=== PATIENT | female | born 1990 | race Caucasian/White ===

== ENCOUNTER 2019-12-02 09:55 | Outpatient (CLI) | payer OTHER ==
--- NOTE | 2019-12-02 10:44 | ULT ---
RIGHT BREAST ULTRASOUND LIMITED: HISTORY: Mastodynia right breast with a palpable area of concern at 12 o'clock with pain. FINDINGS: The breast is evaluated in the region of palpable painful concern. No solid or cystic mass. No abno rmal fluid collection. IMPRESSION: Somewhat heterogeneous echotexture of the right breast consistent with asymmetric echogenic glandular tissue. No solid or cystic mass or evidence for malignancy. No BIRADS category 2, benign findings. If the patient develops any new palpable finding, re-ultrasound of that area of concern should be con sidered. Consider routine screening mammograms at age 35-40 depending upon risk factors.
== END 2019-12-02 09:56 | disposition home or self-care (01) ==
LOC: BICULT 09:55
PROVIDERS: ATTEND Obstetrics & Gynecology
DX: N64.4 Mastodynia (principal); N63.10 Unspecified lump in the right breast, unspecified quadrant

== ENCOUNTER 2020-04-16 15:37 | Day surgery (SDC) | payer OTHER ==
[2020-04-16 16:05] VITALS: BMI 44.9
[2020-04-16 16:15] VITALS: BP 132/78; TEMP 98.6
[2020-04-16] MEDS ORDERED: hydrALAZINE 20 MG/ML VIAL SLOW IVP PRN (17:22)
--- NOTE | 2020-04-16 17:27 | PDOC.BPN ---
- Brief Progress Note Aware of patient status. H&P in process. NST is reactive.
--- NOTE | 2020-04-16 18:53 | HP ---
TIME: It is now 1820. Time of evaluation was roughly 180 until 181. LOCATION: Labor and Delivery in [facility]. CHIEF COMPLAINT: Patient is here for possible contractions and decreased movement at 37 weeks and 5 days. HISTORY OF PRESENT ILLNESS: In brief, this is a 29-year-old, G4, P3, who has a history of three term vaginal deliveries, who has a baby with known/suspected cleft lip, who arrives with some decreased movement that has now resolved. She also states some irregular contractions, but denies vaginal bleeding or leakage of fluid. She denies any fever, COVID-related symptoms, headache, or visual changes. She has no right upper quadrant pain per package delivery room service runner. She came in to get checked to make sure that she was in laboring and to put the baby on the monitor. REVIEW OF SYSTEMS: Complete review of system was checked and is otherwise negative unless specified in the HPI. PAST MEDICAL HISTORY: Otherwise, negative. PAST SURGICAL HISTORY: Significant for inguinal hernia repair, cholecystectomy, and cleft lip and palate repair, which she had as a child. OB HISTORY: Patient has 3 vaginal deliveries at term and significant for her first baby being affected with cleft lip and this baby also having a suspected cleft lip. SOCIAL HISTORY: Negative per package delivery room service runner. FAMILY HISTORY: Noncontributory, collected by package delivery room service runner. PHYSICAL EXAMINATION: VITAL SIGNS: Her blood pressure was first 132/78 and then repeat was 120 over 70s, temperature is 98.6, pulse is in the 80s, and respirations are 18 and nonlabored. GENERAL: She is in no acute distress. ABDOMEN: Soft and nontender and size appropriate. PELVIS: Cervical exam by the RN was 2 cm dilated, 50% effaced, -3 station, bag of water was intact and there was no evidence of bleeding per her assessment. On monitor, I evaluated the nonstress test and found the nonstress test to be reactive with moderate variability, accelerations, and no decelerations. Tocodynamometer shows contractions about every 10 minutes, but this is very irregular and rare. ASSESSMENT: This is a 29-year-old G4, P3, at early term (37 weeks and five days) with suspected contractions and decreased movement, now resolved. Reactive nonstress test. History of cleft lip and palate personally and this child is likely affected with cleft lip as well per imaging studies (prior MRI). PLAN: 1. Reassurance given. 2. NST explained to her in detail. 3. I performed an abdominal rock test to confirm acell and acell was noted. 4. No evidence of true labor at this time. 5. Next appointment is on and I recommended that she have a followup appointment within 24 to 48, which is our standard Labor and Delivery discharge. Job ID: [id number]
== END 2020-04-16 18:30 | disposition home or self-care (01) ==
LOC: L&D/OP 15:37
PROVIDERS: ATTEND Obstetrics & Gynecology
DX: O36.8130 Decreased fetal movements, third trimester, not applicable or unspecified (principal); Z3A.37 37 weeks gestation of pregnancy
CPT/HCPCS: 99283

== ENCOUNTER 2020-04-20 09:50 | Outpatient (CLI) | payer OTHER ==
[2020-04-21 12:41] LABS: SARS-CoV-2 MS2 Positive; SARS-CoV-2 N Gene Negative; SARS-CoV-2 S Gene Negative; SARS-CoV-2 orf1ab Negative
== END 2020-04-20 09:51 | disposition home or self-care (01) ==
LOC: LABSCS 09:50
PROVIDERS: ATTEND Obstetrics & Gynecology
DX: Z01.812 Encounter for preprocedural laboratory examination (principal); Z11.59 Encounter for screening for other viral diseases
CPT/HCPCS: 87635; U0003

== ENCOUNTER 2020-04-21 04:46 | Inpatient (IN) | payer OTHER ==
[2020-04-21] MEDS ORDERED: hydrALAZINE 20 MG/ML VIAL SLOW IVP PRN ×2 (05:17→16:47)
--- NOTE | 2020-04-21 05:17 | PDOC.LDHP ---
Labor and Delivery H&P Chief complaint: loss of fluid HPI: 29yo @ 38.3 presents to L&D for LOF just TELEPRINTER. States since then she has also been experiencing contractions every 5-10 minutes. Has continued to leak fluid ever since. Denies any other complaints at this time. Current gestational age (weeks): 38 (3) Due date: 05/02/20 Dating criteria: last menstrual period, first trimester ultrasound Grav: 4 Para: 3 OB History Details: All previous deliveries via , first child born with cleft lip Current complications: other (Cleft lip seen on MRI) Past Medical History: None Current medications: pre-robin vitamins Previous surgical history: cholecystectomy, other (inguinal hernia repair, cleft lip repair as a child) Allergies/Adverse Reactions: Allergies Allergy/AdvReac Type Severity Reaction Status Date / Time Cephalosporins Allergy Severe Anaphylaxis Verified 04/21/20 05:16 Penicillins Allergy Severe Anaphylaxis Verified 04/21/20 05:16 Sulfa (Sulfonamide Allergy Intermediate Hives Verified 04/21/20 05:16 Antibiotics) Social history: none - Physical Exam Vital signs reviewed and normal: yes General: NAD Heart: RRR Lungs: nonlabored breathing Abdomen: NTTP Extremeties: no edema FHT: category 1, variability present [place] contractions every: 5-6 - Vaginal Exam cm dilated: 4 Effacement: 50% Station: -3 - Assessment L&D Assessment: term rupture in membranes - Plan Plan: admit to L&D
[2020-04-21 05:32] VITALS: BMI 44.9
[2020-04-21] MEDS ORDERED: Butorphanol Tartrate 1 MG/ML VIAL SLOW IVP PRN (05:41)
[2020-04-21] MEDS ORDERED: Misoprostol 200 MCG TAB PR PRN (05:41)
[2020-04-21] MEDS ORDERED: Ibuprofen 800 MG TAB PO PRN (05:41)
[2020-04-21] MEDS ORDERED: Methylergonovine 0.2 MG/ML VIAL IM PRN (05:41)
[2020-04-21] MEDS ORDERED: Carboprost 250 MCG/ML AMP IM PRN (05:41)
[2020-04-21] MEDS ORDERED: Promethazine HCl 25 MG/ML VIAL IM PRN ×2 (05:41→10:37)
[2020-04-21] MEDS ORDERED: Acetaminophen 500 MG TAB PO PRN (05:41)
[2020-04-21] MEDS ORDERED: NS / Oxytocin 40 units/1000ml 1,000 ML IV PRN (05:41)
[2020-04-21] MEDS ORDERED: Lidocaine 1% (PF) 30 ML VIAL SC PRN (05:41)
[2020-04-21] MEDS ORDERED: Ondansetron PF 4 MG/2 ML Vial IVP PRN ×3 (05:41→16:47)
[2020-04-21] MEDS ORDERED: NS w/ Oxytocin 10 units 500 ML IV SCH (05:45)
[2020-04-21 06:57] LABS: Hemoglobin 11.6 g/dL (12.0-16.0); Mean Corpuscular HGB CONC 34.1 g/dL (32.0-36.0); Mean Corpuscular Volume 84.9 fL (78.0-98.0); Platelet Count 260 thou/uL (130-400); RBC Distribution Width 14.1 % (11.5-14.5); Red Blood Cell (RBC) Count 3.99 mill/uL (4.20-5.40); White Blood Cell (WBC) Count 9.1 thou/uL (4.8-10.8)
[2020-04-21 07:41] LABS: Syphilis Antibody Nonreactive (Nonreactive); Syphilis Antibody Index 0.02 S/CO (<1.00 Non-Reactive)
[2020-04-21 07:42] LABS: HBSAg Index 0.15 S/CO (0-0.99); Hep B Surf Ag Non-Reactive S/CO (NonReactive)
[2020-04-21] MEDS: Lactated Ringer's 1,000 ML IV SCH ×2 (07:55→11:15)
[2020-04-21] MEDS ORDERED: Fentanyl 4 mcg/Bup 0.1% Cadd 100 ML ONE (09:41)
[2020-04-21] MEDS ORDERED: Naloxone HCl 0.4 mg/ml Vial IVP PRN ×2 (10:37)
[2020-04-21] MEDS ORDERED: Lactated Ringer's 500 ML IV PRN (10:37)
[2020-04-21] MEDS ORDERED: Acetaminophen 325 MG TAB PO PRN (10:37)
[2020-04-21] MEDS ORDERED: EPHEDRINE 25 MG/5 ML SYRINGE SLOW IVP PRN (10:37)
[2020-04-21] MEDS ORDERED: diphenhydrAMINE 50 MG/ML VIAL IVP PRN (10:37)
[2020-04-21] MEDS ORDERED: Communication Order-Pharmacy FS SCH (10:45)
[2020-04-21] MEDS ORDERED: Fentanyl 4 mcg/Bupivacaine 0.1% Cassette 100 ML EPIDURAL SCH (10:45)
[2020-04-21] MEDS ORDERED: Lidocaine 2% MPF 10 ML AMP (For Epidural Use) ONE (11:26)
[2020-04-21] MEDS: hydrALAZINE 20 MG/ML VIAL SLOW IVP PRN ×2 (11:51→12:10)
[2020-04-21] MEDS ORDERED: Lidocaine 1% (PF) 30 ML VIAL ONE (12:01)
--- NOTE | 2020-04-21 12:52 | PDOC.OPDEL ---
OB Operative/Delivery Note Delivery Dr/Surgeon: Flip Pre-Delivery Diagnosis: active labor Procedure/Post Delivery Dx: spontaneous vaginal delivery (and removal of skin tag from left buttock) Weeks gestation: 38 Anesthesia: epidural - Findings A Sex: male - 1 min: 9 - 5 min: 9 - Additional Findings/Plan Placenta delivered: spontaneous Repaired Obstetrical Laceration: none Estimated blood loss: 100ml Compilations/Other Findings: 1cm pedunculated fibroid removed. Post delivery plan: routine recovery
[2020-04-21] MEDS ORDERED: Preparation H Ointment 28 GM TUBE PR PRN (16:47)
[2020-04-21] MEDS ORDERED: Bisacodyl 10 MG SUPP PR PRN (16:47)
[2020-04-21] MEDS ORDERED: NS / Oxytocin 40 units/1000ml 1,000 ML IV SCH (16:47)
[2020-04-21] MEDS ORDERED: diphenhydrAMINE 25 MG CAP PO PRN (16:47)
[2020-04-21] MEDS ORDERED: Milk Of Magnesia 30 ML UDCUP PO PRN (16:47)
[2020-04-21] MEDS ORDERED: HYDROcodone/Acetaminophen 5/325 mg Tablet PO PRN ×2 (16:47)
[2020-04-21] MEDS ORDERED: Adacel (T-DAP) 0.5 ML SYRINGE IM ONE (16:47)
[2020-04-21] MEDS ORDERED: Lanolin Ointment 7 GM TUBE TOP PRN (16:47)
[2020-04-21] MEDS ORDERED: Benzocaine-Menthol 82.5 ML CAN TOP PRN (16:47)
[2020-04-21] MEDS: Ferrous Sulfate 325 MG TAB PO SCH (18:47)
--- NOTE | 2020-04-21 23:19 | PDOC.BPN ---
- Brief Progress Note OBGYN venereal disease control head: Baby check Called to check on baby in well nursery. Baby with isolated cleft clip per RN and doing well.
[2020-04-21] MEDS: Docusate Calcium (SURFAK) 240 MG CAP PO SCH (23:54)
[2020-04-21] MEDS: Ibuprofen 800 MG TAB PO SCH (23:54)
--- NOTE | 2020-04-22 06:43 | PDOC.PP ---
Post Progress Note Post Day #: 1 Subjective: Patient feeling well this morning, denies any complaints. States she wants to go home today if baby is doing okay. Reports that baby has already been set up with plastic surgeon in [place] for surgical repair of isolated cleft lip. PO intake tolerated: yes Flatus: yes Ambulation: yes Vital Signs (12 hours) Temp Pulse Resp BP Pulse Ox 04/21/20 20:00 98.3 F 62 18 120/63 100 Weight Weight 104.326 kg - Physical Examination General: NAD Cardiovascular: no m/r/g, RRR Respiratory: clear to auscultation bilaterally, non-labored breathing Abdominal: + bowel sounds, appropriately TTP Fundus firm & at: umbilicus Skin: no rash Neurological: no gross focal deficits Psychiatric: A&Ox3, normal affect Result Diagrams: 04/21/20 06:36 Additional Labs: Post Labs Blood Type O POSITIVE 04/21/20 06:35 Hep Bs Antigen Non-Reactive S/CO (NonReactive) 04/21/20 06:36 (1) Term delivered Code(s): O80 - ENCOUNTER FOR FULL-TERM UNCOMPLICATED DELIVERY Status: Acute (2) Spontaneous vaginal delivery Code(s): O80 - ENCOUNTER FOR FULL-TERM UNCOMPLICATED DELIVERY Status: Acute - Assessment/Plan Patient is a 29 yo female who is PPD#1 Term , Delivered -PPD#1 after at 38.3 weeks, no complications during delivery -patient desires to go home today -Ibuprofen Rx sent for outpatient pain control -nursery staff notified that baby's mother is cleared for discharge, if baby unable to d/c today will plan to bed & breakfast patient Dispo: Stable, ready for discharge home later today once baby cleared by nursery.
[2020-04-22] MEDS: Ibuprofen 800 MG TAB PO SCH ×4 (06:51→21:02)
[2020-04-22] MEDS: Prenatal Vitamin 1 TAB PO SCH (08:22)
[2020-04-22] MEDS: Docusate Calcium (SURFAK) 240 MG CAP PO SCH ×2 (08:22→21:02)
[2020-04-22] MEDS: Ferrous Sulfate 325 MG TAB PO SCH ×2 (08:22→17:14)
[2020-04-23] MEDS: Ibuprofen 800 MG TAB PO SCH (05:30)
--- NOTE | 2020-04-23 08:12 | PDOC.PP ---
Post Progress Note Post Day #: 2 Subjective: doing well, good latch, no concerns PO intake tolerated: yes Flatus: yes Ambulation: yes Vital Signs (12 hours) Temp Pulse Resp BP Pulse Ox 04/22/20 20:17 98.2 F 69 18 127/76 100 Weight Weight 230 lb - Physical Examination General: NAD Respiratory: non-labored breathing Abdominal: no distention Neurological: no gross focal deficits Psychiatric: A&Ox3, normal affect Result Diagrams: 04/21/20 06:36 Additional Labs: Post Labs Blood Type O POSITIVE 04/21/20 06:35 Hep Bs Antigen Non-Reactive S/CO (NonReactive) 04/21/20 06:36 (1) Term delivered Code(s): O80 - ENCOUNTER FOR FULL-TERM UNCOMPLICATED DELIVERY Status: Acute (2) Spontaneous vaginal delivery Code(s): O80 - ENCOUNTER FOR FULL-TERM UNCOMPLICATED DELIVERY Status: Acute - Assessment/Plan PPD2 doing well, normal BP, good latch w baby w cleft lip. Plan for DC today.
[2020-04-23 08:27] VITALS: BP 138/75; TEMP 98.6
[2020-04-23] MEDS: Docusate Calcium (SURFAK) 240 MG CAP PO SCH ×2 (09:23→09:24)
[2020-04-23] MEDS: Ferrous Sulfate 325 MG TAB PO SCH (09:23)
[2020-04-23] MEDS: Prenatal Vitamin 1 TAB PO SCH (09:23)
== END 2020-04-23 13:35 | disposition home or self-care (01) | DRG 768 ==
LOC: L&D/OP 04:46 → L&D 07:57 → 3SW 17:54
PROVIDERS: ADMIT Obstetrics & Gynecology; ATTEND Obstetrics & Gynecology
PROC: 10E0XZZ Delivery of Products of Conception, External Approach (ICD-10-PCS; principal; 2020-04-21)
PROC: 0UB97ZZ Excision of Uterus, Via Natural or Artificial Opening (ICD-10-PCS; 2020-04-21)
DX: O34.13 Maternal care for benign tumor of corpus uteri, third trimester (principal); Z37.0 Single live birth; Z3A.38 38 weeks gestation of pregnancy; D25.9 Leiomyoma of uterus, unspecified
CPT/HCPCS: 36415; 51702; 85027; 86780; 86850; 86900; 86901; 87340; 87635; 99285; J0360; J2001; J2590; U0003

== ENCOUNTER 2020-07-23 10:06 | Day surgery (SDC) | payer OTHER ==
[2020-07-20 09:43] VITALS: BMI 40.8
[2020-07-20 10:19] LABS: BHCG - Serum Negative (NEGATIVE); Pregs Control Background? CLEAR/WHITE (CLR/WHITE); Pregs Control Bar Appear? YES (CONTROL BAR)
[2020-07-20 10:27] LABS: Mean Corpuscular HGB CONC 33.7 g/dL (32.0-36.0); Mean Corpuscular Hemoglobin 29.2 pg (27.0-31.0); Mean Corpuscular Volume 86.7 fL (78.0-98.0); Mean Platelet Volume 7.6 fL (7.4-10.4); Platelet Count 340 thou/uL (130-400); RBC Distribution Width 13.5 % (11.5-14.5); Red Blood Cell (RBC) Count 4.79 mill/uL (4.20-5.40); White Blood Cell (WBC) Count 10.5 thou/uL (4.8-10.8)
[2020-07-21 12:00] LABS: SARS-CoV-2 MS2 Positive; SARS-CoV-2 N Gene Negative; SARS-CoV-2 S Gene Negative; SARS-CoV-2 by NAA Not Detected (NotDetected); SARS-CoV-2 orf1ab Negative
[~2020-07-23 10:06] MED LIST: Dexamethasone 20 MG/5 ML VIAL ONE; Lidocaine 1% PF 5 ML VIAL ONE; Metoclopramide HCl 10 MG/2 ML VIAL ONE; PROPOFOL 200 MG/20 ML VIAL ONE; Rocuronium Bromide 10 MG/ML (10ML VIAL) ONE
[2020-07-23] MEDS ORDERED: Famotidine 20 MG TAB ONE (10:21)
[2020-07-23] MEDS ORDERED: Gabapentin 300 MG CAP ONE (10:21)
[2020-07-23] MEDS ORDERED: CeleCOXIB 100 MG CAP ONE (10:21)
[2020-07-23] MEDS ORDERED: Famotidine/PF 20 mg/2ml Vial ONE ×2 (11:00→11:12)
[2020-07-23] MEDS ORDERED: Bupivacaine/Epinephrine 0.25% 30 ML VIAL ONE (11:39)
[2020-07-23] MEDS ORDERED: Propofol 1,000 MG/100 ML VIAL IV ONE (11:45)
[2020-07-23] MEDS ORDERED: PROPOFOL 100 ML ONE (11:45)
[2020-07-23] MEDS ORDERED: Fentanyl 100 MCG/2 ML VIAL ONE (11:45)
[2020-07-23] MEDS ORDERED: SUGAMMADEX SODIUM 500 MG/5 ML VIAL ONE (11:45)
[2020-07-23] MEDS ORDERED: Levofloxacin 500 mg/D5W 100 ml Premix Bag ONE (11:56)
[2020-07-23] MEDS ORDERED: Clindamycin/D5W 900 mg/50 ml Premix Bag ONE (11:56)
[2020-07-23] MEDS ORDERED: Bupivacaine PF 0.5% 30 ML VIAL ONE (11:57)
[2020-07-23] MEDS ORDERED: EPINEPHrine 1 MG/ML AMP ONE (11:57)
[2020-07-23] MEDS ORDERED: Midazolam HCl 2 mg/2 ml Vial ONE (12:00)
[2020-07-23] MEDS ORDERED: Meperidine HCl/PF 25 MG/ML VIAL ONE (13:29)
--- NOTE | 2020-07-23 14:27 | OP ---
DATE OF PROCEDURE: 07/23/2020 PREOPERATIVE DIAGNOSES: 1. Family history of breast cancer. 2. Satisfied parity. 3. Desires risk reducing salpingectomy. POSTOPERATIVE DIAGNOSES: 1. Family history of breast cancer. 2. Satisfied parity. 3. Desires risk reducing salpingectomy. PROCEDURE PERFORMED: Laparoscopic bilateral salpingectomy. YARD COORDINATOR: None. ANESTHESIA: GETA. COMPLICATIONS: None. ESTIMATED BLOOD LOSS: Less than 10 mL. OPERATIVE FINDINGS: 1. Central obesity. 2. Normal uterus, tubes, and ovaries bilaterally. 3. Normal-appearing cervix and vagina. 4. Surgical site hemostatic. DESCRIPTION OF PROCEDURE: The patient was taken back to the OR with IV fluids running. Once she was in the OR, anesthesia was obtained. The patient was then placed in low dorsal lithotomy position and the abdomen and vagina were prepped and draped in normal fashion for gynecologic laparoscopy. The surgeons were gowned and gloved. Ruby catheter was placed using sterile technique and a Hulka clamp was placed under direct visualization through the cervix into the uterus for manipulation. Surgeon's gloves were changed. Attention was turned to the laparoscopic portion of the case. Beginning at the infraumbilical fold, Marcaine with epinephrine was placed underneath the skin. An 11 mm skin incision was then made with a scalpel. A Veress needle was placed through the skin incision and the abdomen was insufflated without difficulty. The Veress needle was then removed and an 11 mm trocar was placed through the distended abdomen. The laparoscope was placed through the trocar with the above findings noted. The patient was placed in Trendelenburg position and under direct visualization, two 5 mm trocars were placed using similar technique in the right and left lower quadrants. After all three ports were placed, the anatomy was inspected and noted to be normal appearing. The fallopian tube on the patient's right side was grasped with an atraumatic grasper, elevated away from the pelvic sidewall and transected using a LigaSure device. After it was completely transected, it was removed for pathologic review. The area of dissection was hemostatic. It was irrigated and suctioned dry with no areas of bleeding noted. In similar fashion, the contralateral left fallopian tube was grasped with a grasper and elevated away from the pelvic sidewall, cauterized and transected using the LigaSure device. It was also removed from the operative field and sent together with the right fallopian tube for pathologic review. The operative areas were inspected with no bleeding noted. The pelvis was irrigated and suctioned dry and the pressure was dropped to 8 mmHg with no bleeding noted. All instruments were then removed from the abdomen. The gas was released and the trocars were removed. The counts were correct. The infraumbilical port site was closed with Vicryl suture at the fascial layer. All three skin incisions were closed with Monocryl suture and dressed with Dermabond dressing. The patient tolerated the procedure well. The Hulka clamp was removed from the vagina with no bleeding noted. The final count was correct. The patient was extubated and moved to the recovery room in good condition. Job ID: [id number] [facility]
== END 2020-07-23 15:10 | disposition home or self-care (01) ==
LOC: SDC 10:06
PROVIDERS: ATTEND Obstetrics & Gynecology
PROC: 0UT74ZZ Resection of Bilateral Fallopian Tubes, Percutaneous Endoscopic Approach (ICD-10-PCS; principal; 2020-07-23)
DX: Z40.03 Encounter for prophylactic removal of fallopian tube(s) (principal); N83.8 Other noninflammatory disorders of ovary, fallopian tube and broad ligament; E66.8 Other obesity; Z68.41 Body mass index [BMI] 40.0-44.9, adult; Z80.3 Family history of malignant neoplasm of breast; Z88.0 Allergy status to penicillin; Z88.1 Allergy status to other antibiotic agents; Z88.2 Allergy status to sulfonamides; Z01.812 Encounter for preprocedural laboratory examination; Z20.828 Contact with and (suspected) exposure to other viral communicable diseases
CPT/HCPCS: 36415; 84703; 85027; 86850; 86900; 86901; 87635; 88305; J0171; J1100; J1956; J2175; J2250; J2704; J2765; J3010; J3490; S0020; S0028; U0003

== ENCOUNTER 2021-08-02 19:30 | Outpatient (CLI) | payer BC, OTHER | END 2021-08-02 19:31 | disposition home or self-care (01) | LOC: SLEEPLAB 19:30 | PROVIDERS: ATTEND Family Medicine | DX: G47.33 Obstructive sleep apnea (adult) (pediatric) (principal); R53.83 Other fatigue; G47.10 Hypersomnia, unspecified; R06.83 Snoring; E66.9 Obesity, unspecified; Z68.39 Body mass index [BMI] 39.0-39.9, adult | CPT/HCPCS: 95811 ==